=== PATIENT | male | born 1980 | race Caucasian/White ===

== ENCOUNTER 2017-05-16 08:38 | Outpatient (CLI) | payer BC ==
[2015-06-05 20:17] VITALS: BP 140/85
[2017-05-16 09:35] LABS: BASOPHILS % 0.8 (0.0-1.5); EOSINOPHILS % 1.2 % (0.0-6.8); MEAN CORPUSCULAR HEMOGLOBIN 30.7 pg (28.0-34.0); MEAN CORPUSCULAR VOLUME 89.6 fl (80.0-100.0); MONOCYTES % 5.9 % (0.0-11.0); NEUTROPHILS # 3.6 # k/uL (1.4-7.7)
[2017-05-16 09:38] LABS: eGFR (African) > 60; eGFR (Non-African) > 60
== END 2017-05-16 08:48 ==
LOC: LAB 08:38
PROVIDERS: ATTEND Family Medicine
DX: Z00.00 Encounter for general adult medical examination without abnormal findings (principal)
CPT/HCPCS: 36415; 80053; 80061; 84443; 85025

== ENCOUNTER 2019-01-27 11:26 | Outpatient (CLI) | payer BC ==
[2015-06-05 20:17] VITALS: BP 140/85
[2019-01-27 11:45] LABS: MEAN CORPUSCULAR HEMOGLOBIN 29.7 pg (28.0-34.0)
[2019-01-27 12:05] LABS: eGFR (Non-African) > 60
== END 2019-01-27 11:28 ==
LOC: LAB 11:26
PROVIDERS: ATTEND Family Medicine
DX: Z00.00 Encounter for general adult medical examination without abnormal findings (principal); Z13.0 Encounter for screening for diseases of the blood and blood-forming organs and certain disorders involving the immune mechanism; Z13.220 Encounter for screening for lipoid disorders; Z79.899 Other long term (current) drug therapy
CPT/HCPCS: 36415; 80053; 80061; 85027